=== PATIENT | male | born 1975 | race Caucasian/White ===

== ENCOUNTER 2016-12-04 20:23 | Inpatient (IN) | payer SELFPAY ==
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
--- NOTE | ~2016-12-04 | DS ---
Discharge Summary [facility] [address] [place]. [address] NAME: ZANA FIGUEROA : 75 STATUS : ADM IN [facility]#: [id number] AGE: 41 ADM/REG DATE : 12/04/16 MR#: [id number] REPORT SERV DATE: 12/07/16 DICTATED BY: YESSICA IGNACIO DATE: 12/07/16 REPORT STATUS : Draft TRANSCRIBED BY: MODL DATE: 12/07/16 ADMISSION DATE: 12/04/2016 DISCHARGE DATE: 12/07/2016 FINAL HOSPITAL DIAGNOSES: 1. Upper gastrointestinal bleed. 2. History of headaches and chronic back pain. CONSULTATIONS: Aren Bush MD, Pulmonary Critical Care, and Dr. Leonel Patel M.D., GI. PROCEDURES: Upper endoscopy done on the showing mildly severe reflux esophagitis, nonbleeding esophageal ulcers, benign-appearing esophageal stricture, hiatal hernia, gastritis, gastric ulcers, and duodenitis. CURRENT PHYSICAL FINDINGS IN HISTORY OF PRESENT ILLNESS: Please see dictated H and P by Dr. Bush. In brief, the patient is a 41-year-old male with the above medical history who presented with multiple episodes of emesis with blood. Presenting vital signs, BP was 109/60, temp was 97.6, and pulse was 110. LABORATORY DATA: Initial BMP was unremarkable as were serial BMPs. LFTs were normal. Troponin was normal. Initial white count was 20,000 on the , subsequent on the was 6 and 10th was 6.8; this was most likely a stress reaction. His initial hemoglobin was 14. Hemoglobins sequentially decreased to as low as 9.8 on the . He has been 10.5 to 10.8 on multiple checks since that time. Chest x-ray was unremarkable. HOSPITAL COURSE: The patient was admitted to the ICU because of his GI bleed, his tachycardia, he was requiring significant O2, and GI was consulted. He underwent the above endoscopy procedure. He was initially placed on IV octreotide and PPIs. He was given Zofran as an antiemetic. Post endoscopy, his hemoglobins remained stable. The patient was advanced on a diet. He was transferred to the floor on the , seen by GI, and cleared for discharge on the with stable H and H, is tolerating p.o., no further emesis, and no further problems. The patient was specifically counseled to discontinue his NSAIDs. DISPOSITION: He is discharged home. RECOMMENDATIONS: For OTC Prilosec 20 mg one per day 30 to 60 minutes prior to breakfast. He was given a prescription for Carafate 1 g before meals and at bedtime. He is asked to make a followup appointment with Dr. Patel in 1 to 2 months for consideration of repeat endoscopy. Return for any recurrent bleeding or emesis. TLF/MODL Yessica Bernstein Discharge Summary [address] [place] [address] NAME: ZANA FIGUEROA : 75 STATUS : ADM IN [facility]#: [id number] AGE: 41 ADM/REG DATE : 12/04/16 MR#: [id number] REPORT SERV DATE: 12/07/16 DICTATED BY: YESSICA IGNACIO DATE: 12/07/16 REPORT STATUS : Draft TRANSCRIBED BY: LOREN DATE: 12/07/16 Fransico Ignacio / [id number] CC: Yessica Ignacio M.D.
--- NOTE | ~2016-12-04 | EGD ---
EGD REPORT [facility] [address] [address] NAME: ISREAL BIRMINGHAM : 75 STATUS : ADM IN PAT#: [id number] AGE: 41 ADM/REG DATE : 12/04/16 MR#: [id number] REPORT SERV DATE: 12/05/16 DICTATED BY: LINDA WHYTE DATE: 12/05/16 REPORT STATUS : Draft TRANSCRIBED BY: [facility] DATE: 12/05/16 Endoscopy Center Patient Name: Isreal Birmingham Date of : 1975 Attending MD: LINDA WHYTE MD Procedure Date No Time: 12/05/2016 Procedure: Upper GI endoscopy Indications: Acute post hemorrhagic anemia, Dysphagia, Heartburn Medicines: Propofol per Anesthesia Complications: No immediate complications. Procedure: Pre-Anesthesia Assessment: - ASA Grade Assessment: III - A patient with severe systemic disease. After obtaining informed consent, the endoscope was passed under direct vision. Throughout the procedure, the patient's blood pressure, pulse, and oxygen saturations were monitored continuously. The GIF [id number] was introduced through the mouth, and advanced to the third part of duodenum. The upper GI endoscopy was accomplished without difficulty. The patient tolerated the procedure well. Findings: Mildly severe esophagitis with no bleeding was found in the entire esophagus. Few linear esophageal ulcers with no bleeding and stigmata of recent bleeding were found. The largest lesion was 5 mm in largest dimension. A benign-appearing, intrinsic moderate stenosis was found at the gastroesophageal junction and was traversed. The lesion was not amenable to dilation, and this was not attempted. due to ulcer in the esophagus A small hiatus hernia was present. as seen on retroflexion Diffuse moderate inflammation characterized by congestion (edema), erosions, erythema and shallow ulcerations was found in the entire examined stomach. Many non-bleeding linear gastric ulcers with no stigmata of bleeding were found in the gastric antrum. The largest lesion was 6 mm in largest dimension. Localized moderate inflammation characterized by congestion (edema), erosions and erythema was found in the duodenal bulb. The 2nd part of the duodenum and 3rd part of the duodenum were normal. Impression: - Mildly severe reflux esophagitis. - Non-bleeding esophageal ulcers. - Benign-appearing esophageal stricture. - Hiatus hernia. EGD REPORT [place] [address] [place]. [address] NAME: ISREAL BIRMINGHAM : 75 STATUS : ADM IN [facility]#: [id number] AGE: 41 ADM/REG DATE : 12/04/16 MR#: [id number] REPORT SERV DATE: 12/05/16 DICTATED BY: LINDA WHYTE DATE: 12/05/16 REPORT STATUS : Draft TRANSCRIBED BY: [employer] DATE: 12/05/16 - Gastritis. - Gastric ulcers with clean base. - Duodenitis. - Normal 2nd part of the duodenum and 3rd part of the duodenum. Recommendation: - Return to previous diet. - Use Prilosec (omeprazole) 20 mg PO daily. - take 30-60 minutes before breakfast or supper - Use sucralfate suspension 1 gram PO QID. - take before each meal and at bedtime - Repeat the upper endoscopy in 3 months to check healing. - Stay in MICU but can be transferred to the floor from GI point of view Procedure Code(s): --- Professional --- 75795, Esophagogastroduodenoscopy, flexible, transoral; diagnostic, including collection of specimen(s) by brushing or washing, when performed (separate procedure) Diagnosis Code(s): --- Professional --- K21.0, Gastro-esophageal reflux disease with esophagitis K22.10, Ulcer of esophagus without bleeding K22.2, Esophageal obstruction K44.9, Diaphragmatic hernia without obstruction or gangrene K29.70, Gastritis, unspecified, without bleeding K25.9, Gastric ulcer, unspecified as acute or chronic, without hemorrhage or perforation K29.80, Duodenitis without bleeding D62, Acute posthemorrhagic anemia R13.10, Dysphagia, unspecified R12, Heartburn CPT copyright 2013 [employer]. All rights reserved. The codes documented in this report are preliminary and upon pulper review may be revised to meet current compliance requirements. Linda Whyte MD LINDA WHYTE MD 12/05/2016 4:47 PM This report has been signed electronically. Number of Addenda: 0 EGD REPORT [facility] [address] [address] NAME: ISREAL BIRMINGHAM : 75 STATUS : ADM IN PAT#: [id number] AGE: 41 ADM/REG DATE : 12/04/16 MR#: [id number] REPORT SERV DATE: 12/05/16 DICTATED BY: LINDA WHYTE DATE: 12/05/16 REPORT STATUS : Draft TRANSCRIBED BY: [employer] DATE: 12/05/16 Note Initiated On: 12/05/2016 4:23 PM Scope Withdrawal Time 0 hours 0 minutes 0 seconds [address] [address]
[2016-12-04 20:04] LABS: BASOPHILS 0.2 %; BASOPHILS ABSOLUTE 0.05 10/3/uL (0.0-0.16); EOSINOPHILS 0.3 %; EOSINOPHILS ABSOLUTE 0.06 10/3/uL (0.0-0.53); ER CBC TAT 0 Hrs 10 Mins; HEMATOCRIT 40.1 % (40.0-51.0); HEMOGLOBIN 14.3 g/dL (13.6-17.8); IMMATURE GRANULOCYTES 0.2 %; IMMATURE GRANULOCYTES ABSOLUTE 0.05 10/3/uL (0.0-0.11); LYMPHOCYTES 8.6 %; LYMPHOCYTES ABSOLUTE 1.73 10/3/uL (0.67-4.30); MANUAL DIFF NO %; MEAN CORPUS HGB CONC 35.7 g/dL (32.0-36.0); MEAN CORPUSCULAR HEMOGLOB 29.6 pg (26.0-34.0); MEAN PLATELET VOLUME 9.7 fL (9.2-13.0); MONOCYTES 8.7 %; MONOCYTES ABSOLUTE 1.75 10/3/uL (0.21-1.20); NEUTROPHILS ABSOLUTE 16.56 10/3/uL (2.02-8.40); PLATELET COUNT 365 10/3/uL (150-400); RBC DISTRIBUTION WIDTH 12.9 % (12.0-16.0); RED CELL COUNT 4.83 10/6/uL (4.7-6.1); WHITE BLOOD CELLS 20.2 10/3/uL (4.5-10.5)
[2016-12-04 20:16] LABS: ALKALINE PHOSPHATASE 74 U/L (45-117); BUN (BLOOD UREA NITROGEN) 23 MG/DL (6-23); CALCIUM, SERUM 8.4 MG/DL (8.5-10.4); CHEST PAIN PROFILE TAT 0 Hrs 22 Mins; CHLORIDE, SERUM 106 MMOL/L (96-112); CO2 (CARBON DIOXIDE) 27 MMOL/L (24-34); DIRECT BILIRUBIN 0.2 MG/DL (0.0-0.4); GFR AFRICAN AMERICAN 108 ML/MIN (>=60); GFR NON AFRICAN AMERICAN 93 ML/MIN (>=60); GLUCOSE, SERUM 138 MG/DL (60-99); INDIRECT BILIRUBIN(NOT ORDER) 0.6 MG/DL (0.1-0.9); POTASSIUM, SERUM 4.7 MMOL/L (3.5-5.3); SGOT(AST) 17 U/L (5-40); SGPT(ALT) 26 U/L (5-65); SODIUM, SERUM 143 MMOL/L (135-148); TOTAL BILIRUBIN 0.8 MG/DL (0-1.2); TOTAL PROTEIN 6.9 G/DL (6.0-8.5); TROPONIN I 0.02 NG/ML (<0.05)
[~2016-12-04 20:23] MED LIST: IBU400 PO
[2016-12-04 20:28] LABS: INTERNATIONAL NORMAL RATI 1.2 UNITS (-); PROTIME (NOT ORD) 14.7 SEC (12.0-14.5)
[2016-12-04 23:13] LABS: HEMATOCRIT 36.3 % (40.0-51.0); HEMOGLOBIN 12.8 g/dL (13.6-17.8)
[2016-12-05 04:35] LABS: HEMOGLOBIN 11.6 g/dL (13.6-17.8)
[2016-12-05 04:36] LABS: HEMATOCRIT 32.4 % (40.0-51.0)
[2016-12-05 22:19] LABS: HEMATOCRIT 30.8 % (40.0-51.0); HEMOGLOBIN 10.7 g/dL (13.6-17.8)
[2016-12-06 03:32] LABS: BASOPHILS 0.7 %; BASOPHILS ABSOLUTE 0.04 10/3/uL (0.0-0.16); EOSINOPHILS 4.5 %; EOSINOPHILS ABSOLUTE 0.27 10/3/uL (0.0-0.53); HEMATOCRIT 28.5 % (40.0-51.0); HEMOGLOBIN 9.8 g/dL (13.6-17.8); IMMATURE GRANULOCYTES 0.2 %; IMMATURE GRANULOCYTES ABSOLUTE 0.01 10/3/uL (0.0-0.11); LYMPHOCYTES 30.6 %; LYMPHOCYTES ABSOLUTE 1.84 10/3/uL (0.67-4.30); MEAN CORPUS HGB CONC 34.4 g/dL (32.0-36.0); MEAN CORPUSCULAR HEMOGLOB 28.6 pg (26.0-34.0); MEAN CORPUSCULAR VOLUME 83.1 fL (80-100); MEAN PLATELET VOLUME 9.6 fL (9.2-13.0); MONOCYTES 10.3 %; MONOCYTES ABSOLUTE 0.62 10/3/uL (0.21-1.20); NEUTROPHILS 53.7 %; NEUTROPHILS ABSOLUTE 3.24 10/3/uL (2.02-8.40); RBC DISTRIBUTION WIDTH 13.3 % (12.0-16.0)
[2016-12-06 03:33] LABS: MANUAL DIFF NO %; PLATELET COUNT 230 10/3/uL (150-400); RED CELL COUNT 3.43 10/6/uL (4.7-6.1)
[2016-12-06 03:52] LABS: BUN (BLOOD UREA NITROGEN) 11 MG/DL (6-23); CALCIUM, SERUM 7.8 MG/DL (8.5-10.4); CHLORIDE, SERUM 106 MMOL/L (96-112); CO2 (CARBON DIOXIDE) 29 MMOL/L (24-34); CREATININE 0.92 MG/DL (0.70-1.30); GFR AFRICAN AMERICAN 119 ML/MIN (>=60); GFR NON AFRICAN AMERICAN 103 ML/MIN (>=60); GLUCOSE, SERUM 95 MG/DL (60-99); PHOSPHORUS, SERUM 2.3 MG/DL (2.5-4.5); POTASSIUM, SERUM 3.6 MMOL/L (3.5-5.3); SODIUM, SERUM 144 MMOL/L (135-148)
[2016-12-06 15:57] LABS: HEMATOCRIT 29.9 % (40.0-51.0); HEMOGLOBIN 10.7 g/dL (13.6-17.8)
[2016-12-06 23:11] LABS: HEMATOCRIT 29.8 % (40.0-51.0); HEMOGLOBIN 10.5 g/dL (13.6-17.8)
[2016-12-07 03:25] LABS: BASOPHILS 0.7 %; BASOPHILS ABSOLUTE 0.05 10/3/uL (0.0-0.16); EOSINOPHILS 4.4 %; HEMOGLOBIN 10.8 g/dL (13.6-17.8); IMMATURE GRANULOCYTES 0.3 %; IMMATURE GRANULOCYTES ABSOLUTE 0.02 10/3/uL (0.0-0.11); LYMPHOCYTES 36.1 %; LYMPHOCYTES ABSOLUTE 2.46 10/3/uL (0.67-4.30); MANUAL DIFF NO %; MEAN CORPUSCULAR VOLUME 83.3 fL (80-100); MEAN PLATELET VOLUME 10.1 fL (9.2-13.0); MONOCYTES 10.9 %; MONOCYTES ABSOLUTE 0.74 10/3/uL (0.21-1.20); NEUTROPHILS 47.6 %; NEUTROPHILS ABSOLUTE 3.25 10/3/uL (2.02-8.40); PLATELET COUNT 285 10/3/uL (150-400); RBC DISTRIBUTION WIDTH 12.9 % (12.0-16.0); WHITE BLOOD CELLS 6.8 10/3/uL (4.5-10.5)
[2016-12-07 03:37] LABS: BUN (BLOOD UREA NITROGEN) 8 MG/DL (6-23); CHLORIDE, SERUM 106 MMOL/L (96-112); CO2 (CARBON DIOXIDE) 26 MMOL/L (24-34); GFR AFRICAN AMERICAN 123 ML/MIN (>=60); GFR NON AFRICAN AMERICAN 106 ML/MIN (>=60); GLUCOSE, SERUM 86 MG/DL (60-99); SODIUM, SERUM 142 MMOL/L (135-148)
[2016-12-07 03:41] LABS: CALCIUM, SERUM 8.8 MG/DL (8.5-10.4)
[2016-12-07 03:42] LABS: PHOSPHORUS, SERUM 3.3 MG/DL (2.5-4.5); POTASSIUM, SERUM 4.2 MMOL/L (3.5-5.3)
[2016-12-07] MEDS ORDERED: PRILO PO (08:59)
[2016-12-07] MEDS ORDERED: SUCR PO (09:01)
== END 2016-12-07 18:40 | disposition home or self-care (01) | DRG 378 ==
LOC: ER 20:23 → CCU 20:28 → 4SO 12-06 12:38
PROVIDERS: Emergency Medicine; Internal Medicine; Internal Medicine Critical Care Medicine; Internal Medicine Gastroenterology
PROC: 0DJ08ZZ Inspection of Upper Intestinal Tract, Via Natural or Artificial Opening Endoscopic (ICD-10-PCS; principal; 2016-12-05 16:29)
DX: K92.2 Gastrointestinal hemorrhage, unspecified (principal); K22.10 Ulcer of esophagus without bleeding; R13.10 Dysphagia, unspecified; K22.2 Esophageal obstruction; I48.91 Unspecified atrial fibrillation; K25.9 Gastric ulcer, unspecified as acute or chronic, without hemorrhage or perforation; D62 Acute posthemorrhagic anemia; G89.29 Other chronic pain; M54.9 Dorsalgia, unspecified; F17.220 Nicotine dependence, chewing tobacco, uncomplicated; K21.0 Gastro-esophageal reflux disease with esophagitis; K44.9 Diaphragmatic hernia without obstruction or gangrene; K29.70 Gastritis, unspecified, without bleeding; K29.80 Duodenitis without bleeding; E11.9 Type 2 diabetes mellitus without complications; I10 Essential (primary) hypertension; R12 Heartburn; M06.9 Rheumatoid arthritis, unspecified; R00.0 Tachycardia, unspecified; Z80.3 Family history of malignant neoplasm of breast; Z80.1 Family history of malignant neoplasm of trachea, bronchus and lung; Z80.8 Family history of malignant neoplasm of other organs or systems
CPT/HCPCS: 36415; 71010; 80048; 80076; 83735; 84100; 84484; 85014; 85018; 85025; 85610; 85730; 86850; 86900; 86901; 86920; 87641; 90686; 96365; 96368; 96375; 99291; A9270-GY; C9113; G0008; J0456; J2405; J2765